=== PATIENT | female | born 1935 | race Caucasian/White ===

== ENCOUNTER 2021-03-21 12:38 | Inpatient (IN) ==
[2021-03-21] MEDS ORDERED: *HR* Dextrose 50 % in Water (Vial) 50 ML VIAL IVP PRN (16:04)
[2021-03-21] MEDS ORDERED: Dextrose Gel 15 GM/37.5 ML TUBE PO PRN ×2 (16:04)
[2021-03-21] MEDS ORDERED: D5% in Water 1,000 ML IVC PRN (16:04)
[2021-03-21] MEDS: *HR* OxyCODONE/APAP 7.5/325 TABLET PO PRN ×2 (16:32→23:02)
[2021-03-21] MEDS: Insulin LISPRO 300 UNITS/3 ML VIAL SUBQ SCH ×2 (16:33→21:15)
[2021-03-22] MEDS ORDERED: *HR* OxyCODONE Immed Rel 5 MG TABLET PO ONE (03:12)
[2021-03-22 05:07] LABS: Basophils % 0.2 %; Eosinophils # 0.1 K/mcL (0.0-0.6); Eosinophils % 1.4 %; Hematocrit 29.1 % (35.3-44.9); Hemoglobin 9.4 g/dL (11.5-15.4); Lymphocytes # 0.6 K/mcL (0.6-4.6); Lymphocytes % 11.7 %; Mean Corpuscular HGB Conc 32.3 g/dL (31.6-35.5); Mean Corpuscular Hemoglobin 28.9 pg (28.0-33.3); Mean Corpuscular Volume 89.5 fL (83.0-100.0); Mean Platelet Volume 9.6 fL (9.4-12.4); Monocytes # 0.6 K/mcL (0.0-1.3); Monocytes % 12.5 %; Neutrophils # 3.7 K/mcL (1.6-8.9); Platelet Count 412 K/mcL (140-400); Red Blood Count 3.25 M/mcL (3.82-4.97); Red Cell Distribution Width 12.9 % (11.5-14.5); Segmented Neutrophils % 73.2 %
[2021-03-22 05:22] LABS: Calcium 9.8 mg/dL (8.6-10.3)
[2021-03-22] MEDS: *HR* OxyCODONE/APAP 7.5/325 TABLET PO PRN ×3 (06:51→19:40)
[2021-03-22] MEDS: Insulin LISPRO 300 UNITS/3 ML VIAL SUBQ SCH ×4 (07:47→22:45)
[2021-03-22] MEDS: GlipiZIDE 5 MG TABLET PO SCH (08:54)
[2021-03-22] MEDS: Cholecalciferol (D-3) 1,000 UNIT (25MCG) TABLET PO SCH (08:55)
[2021-03-22] MEDS: Ondansetron ODT 4 MG TAB.RAPDIS SL PRN (12:21)
[2021-03-23] MEDS: *HR* OxyCODONE/APAP 7.5/325 TABLET PO PRN ×4 (01:47→21:14)
[2021-03-23] MEDS: Insulin LISPRO 300 UNITS/3 ML VIAL SUBQ SCH ×4 (07:48→21:16)
[2021-03-23] MEDS: GlipiZIDE 5 MG TABLET PO SCH (07:50)
[2021-03-23] MEDS: Cholecalciferol (D-3) 1,000 UNIT (25MCG) TABLET PO SCH (07:51)
[2021-03-23] MEDS: Ondansetron ODT 4 MG TAB.RAPDIS SL PRN (07:52)
[2021-03-24] MEDS: *HR* OxyCODONE/APAP 7.5/325 TABLET PO PRN ×4 (03:00→22:16)
[2021-03-24] MEDS: Cholecalciferol (D-3) 1,000 UNIT (25MCG) TABLET PO SCH (08:09)
[2021-03-24] MEDS: GlipiZIDE 5 MG TABLET PO SCH (08:09)
[2021-03-24] MEDS: Insulin LISPRO 300 UNITS/3 ML VIAL SUBQ SCH ×4 (11:27→21:00)
[2021-03-25] MEDS: *HR* OxyCODONE/APAP 7.5/325 TABLET PO PRN ×3 (04:23→17:06)
[2021-03-25] MEDS: Cholecalciferol (D-3) 1,000 UNIT (25MCG) TABLET PO SCH (09:45)
[2021-03-25] MEDS: Insulin LISPRO 300 UNITS/3 ML VIAL SUBQ SCH ×4 (09:45→20:50)
[2021-03-25] MEDS: GlipiZIDE 5 MG TABLET PO SCH (09:45)
[2021-03-25] MEDS: Fluconazole 100 MG TABLET PO SCH (15:44)
[2021-03-25] MEDS: Ibuprofen 400 MG TABLET PO PRN ×2 (15:44→23:29)
[2021-03-26] MEDS: *HR* OxyCODONE/APAP 7.5/325 TABLET PO PRN ×3 (03:49→18:41)
[2021-03-26] MEDS: *HR* Enoxaparin 30 MG/0.3 ML SYRINGE SQ SCH (05:34)
[2021-03-26 06:06] LABS: Hematocrit 30.4 % (35.3-44.9); Hemoglobin 9.5 g/dL (11.5-15.4); Mean Corpuscular HGB Conc 31.3 g/dL (31.6-35.5); Mean Corpuscular Hemoglobin 27.9 pg (28.0-33.3); Mean Corpuscular Volume 89.4 fL (83.0-100.0); Mean Platelet Volume 9.7 fL (9.4-12.4); Platelet Count 336 K/mcL (140-400); Red Cell Distribution Width 13.2 % (11.5-14.5); White Blood Count 5.8 K/mcL (4.3-11.1)
[2021-03-26 06:24] LABS: Calcium 9.3 mg/dL (8.6-10.3); Magnesium 1.9 mg/dL (1.6-2.6); Potassium 4.2 mEq/L (3.5-5.1)
[2021-03-26] MEDS: Insulin LISPRO 300 UNITS/3 ML VIAL SUBQ SCH ×4 (08:38→20:57)
[2021-03-26] MEDS: Cholecalciferol (D-3) 1,000 UNIT (25MCG) TABLET PO SCH (09:19)
[2021-03-26] MEDS: GlipiZIDE 5 MG TABLET PO SCH (09:20)
[2021-03-26] MEDS: Fluconazole 100 MG TABLET PO SCH (09:20)
[2021-03-26] MEDS: Tolterodine LA (24 HR) 2 MG CAP.ER.24H PO SCH (09:20)
[2021-03-27] MEDS: *HR* OxyCODONE/APAP 7.5/325 TABLET PO PRN ×3 (03:56→17:12)
[2021-03-27] MEDS: *HR* Enoxaparin 30 MG/0.3 ML SYRINGE SQ SCH (06:18)
[2021-03-27] MEDS: Insulin LISPRO 300 UNITS/3 ML VIAL SUBQ SCH ×4 (07:37→21:00)
[2021-03-27] MEDS: Fluconazole 100 MG TABLET PO SCH (10:01)
[2021-03-27] MEDS: Tolterodine LA (24 HR) 2 MG CAP.ER.24H PO SCH (10:01)
[2021-03-27] MEDS: Cholecalciferol (D-3) 1,000 UNIT (25MCG) TABLET PO SCH (10:01)
[2021-03-27] MEDS: GlipiZIDE 5 MG TABLET PO SCH (10:01)
[2021-03-27] MEDS: Sennosides 8.6 MG TABLET PO SCH (21:00)
[2021-03-28] MEDS: *HR* OxyCODONE/APAP 7.5/325 TABLET PO PRN ×3 (01:39→16:51)
[2021-03-28] MEDS: *HR* Enoxaparin 30 MG/0.3 ML SYRINGE SQ SCH (04:16)
[2021-03-28] MEDS: Insulin LISPRO 300 UNITS/3 ML VIAL SUBQ SCH ×4 (07:35→22:09)
[2021-03-28] MEDS: Tolterodine LA (24 HR) 2 MG CAP.ER.24H PO SCH (09:00)
[2021-03-28] MEDS: Cholecalciferol (D-3) 1,000 UNIT (25MCG) TABLET PO SCH (09:00)
[2021-03-28] MEDS: GlipiZIDE 5 MG TABLET PO SCH (09:00)
[2021-03-28] MEDS: Sennosides 8.6 MG TABLET PO SCH ×2 (09:00→22:08)
[2021-03-28] MEDS: Fluconazole 100 MG TABLET PO SCH (09:00)
[2021-03-28] MEDS: polyethylene glycoL 3350 17 GM POWD.PACK PO SCH (09:01)
[2021-03-29] MEDS: *HR* OxyCODONE/APAP 7.5/325 TABLET PO PRN ×3 (02:57→21:38)
[2021-03-29] MEDS: *HR* Enoxaparin 30 MG/0.3 ML SYRINGE SQ SCH (06:23)
[2021-03-29] MEDS: Insulin LISPRO 300 UNITS/3 ML VIAL SUBQ SCH ×4 (07:49→21:33)
[2021-03-29] MEDS: Cholecalciferol (D-3) 1,000 UNIT (25MCG) TABLET PO SCH (09:35)
[2021-03-29] MEDS: polyethylene glycoL 3350 17 GM POWD.PACK PO SCH (09:35)
[2021-03-29] MEDS: Tolterodine LA (24 HR) 2 MG CAP.ER.24H PO SCH (09:36)
[2021-03-29] MEDS: Fluconazole 100 MG TABLET PO SCH (09:36)
[2021-03-29] MEDS: Sennosides 8.6 MG TABLET PO SCH ×2 (09:36→21:38)
[2021-03-29] MEDS: GlipiZIDE 5 MG TABLET PO SCH (09:36)
[2021-03-30] MEDS: *HR* OxyCODONE/APAP 7.5/325 TABLET PO PRN ×4 (03:11→23:03)
[2021-03-30] MEDS: *HR* Enoxaparin 30 MG/0.3 ML SYRINGE SQ SCH (05:58)
[2021-03-30] MEDS: Insulin LISPRO 300 UNITS/3 ML VIAL SUBQ SCH ×4 (08:23→20:06)
[2021-03-30] MEDS: polyethylene glycoL 3350 17 GM POWD.PACK PO SCH (08:54)
[2021-03-30] MEDS: Fluconazole 100 MG TABLET PO SCH (08:55)
[2021-03-30] MEDS: Sennosides 8.6 MG TABLET PO SCH ×2 (08:55→20:07)
[2021-03-30] MEDS: GlipiZIDE 5 MG TABLET PO SCH (08:55)
[2021-03-30] MEDS: Tolterodine LA (24 HR) 2 MG CAP.ER.24H PO SCH (08:55)
[2021-03-30] MEDS: Cholecalciferol (D-3) 1,000 UNIT (25MCG) TABLET PO SCH (08:56)
[2021-03-31 06:15] LABS: Basophils % 0.2 %; Eosinophils # 0.2 K/mcL (0.0-0.6); Eosinophils % 3.7 %; Hematocrit 30.1 % (35.3-44.9); Hemoglobin 9.3 g/dL (11.5-15.4); Immature Granulocytes % 0.5 % (0-4); Lymphocytes # 0.6 K/mcL (0.6-4.6); Lymphocytes % 14.3 %; Mean Corpuscular HGB Conc 30.9 g/dL (31.6-35.5); Mean Corpuscular Hemoglobin 27.8 pg (28.0-33.3); Mean Corpuscular Volume 89.9 fL (83.0-100.0); Monocytes # 0.4 K/mcL (0.0-1.3); Monocytes % 10.1 %; Neutrophils # 2.9 K/mcL (1.6-8.9); Platelet Count 256 K/mcL (140-400); Red Blood Count 3.35 M/mcL (3.82-4.97); Red Cell Distribution Width 13.7 % (11.5-14.5); Segmented Neutrophils % 71.2 %; White Blood Count 4.1 K/mcL (4.3-11.1)
[2021-03-31] MEDS: *HR* Enoxaparin 30 MG/0.3 ML SYRINGE SQ SCH (06:19)
[2021-03-31] MEDS: *HR* OxyCODONE/APAP 7.5/325 TABLET PO PRN ×2 (06:23→19:51)
[2021-03-31 06:34] LABS: Calcium 9.2 mg/dL (8.6-10.3); Potassium 4.4 mEq/L (3.5-5.1)
[2021-03-31] MEDS: Insulin LISPRO 300 UNITS/3 ML VIAL SUBQ SCH ×4 (07:55→19:48)
[2021-03-31] MEDS: Tolterodine LA (24 HR) 2 MG CAP.ER.24H PO SCH (08:41)
[2021-03-31] MEDS: polyethylene glycoL 3350 17 GM POWD.PACK PO SCH (08:41)
[2021-03-31] MEDS: Sennosides 8.6 MG TABLET PO SCH ×2 (08:41→19:51)
[2021-03-31] MEDS: Fluconazole 100 MG TABLET PO SCH (08:41)
[2021-03-31] MEDS: Cholecalciferol (D-3) 1,000 UNIT (25MCG) TABLET PO SCH (08:41)
[2021-03-31] MEDS: GlipiZIDE 5 MG TABLET PO SCH (08:41)
[2021-04-01] MEDS: *HR* Enoxaparin 30 MG/0.3 ML SYRINGE SQ SCH (04:51)
[2021-04-01] MEDS: Cholecalciferol (D-3) 1,000 UNIT (25MCG) TABLET PO SCH (08:55)
[2021-04-01] MEDS: GlipiZIDE 5 MG TABLET PO SCH (08:55)
[2021-04-01] MEDS: Fluconazole 100 MG TABLET PO SCH (08:55)
[2021-04-01] MEDS: Sennosides 8.6 MG TABLET PO SCH ×2 (08:55→23:16)
[2021-04-01] MEDS: polyethylene glycoL 3350 17 GM POWD.PACK PO SCH (08:56)
[2021-04-01] MEDS: Tolterodine LA (24 HR) 2 MG CAP.ER.24H PO SCH (08:56)
[2021-04-01] MEDS: Insulin LISPRO 300 UNITS/3 ML VIAL SUBQ SCH ×4 (09:33→23:16)
[2021-04-01] MEDS: *HR* OxyCODONE/APAP 7.5/325 TABLET PO PRN ×3 (10:19→23:16)
[2021-04-02] MEDS: *HR* Enoxaparin 30 MG/0.3 ML SYRINGE SQ SCH (06:43)
[2021-04-02] MEDS: *HR* OxyCODONE/APAP 7.5/325 TABLET PO PRN ×3 (06:43→21:19)
[2021-04-02] MEDS: Cholecalciferol (D-3) 1,000 UNIT (25MCG) TABLET PO SCH (07:53)
[2021-04-02] MEDS: Insulin LISPRO 300 UNITS/3 ML VIAL SUBQ SCH ×4 (07:53→21:27)
[2021-04-02] MEDS: GlipiZIDE 5 MG TABLET PO SCH (07:54)
[2021-04-02] MEDS: Fluconazole 100 MG TABLET PO SCH (07:54)
[2021-04-02] MEDS: polyethylene glycoL 3350 17 GM POWD.PACK PO SCH (07:54)
[2021-04-02] MEDS: Tolterodine LA (24 HR) 2 MG CAP.ER.24H PO SCH (07:54)
[2021-04-02] MEDS: Sennosides 8.6 MG TABLET PO SCH ×2 (07:55→21:08)
[2021-04-03] MEDS: *HR* Enoxaparin 30 MG/0.3 ML SYRINGE SQ SCH (04:06)
[2021-04-03] MEDS: *HR* OxyCODONE/APAP 7.5/325 TABLET PO PRN ×3 (04:06→18:28)
[2021-04-03] MEDS: Insulin LISPRO 300 UNITS/3 ML VIAL SUBQ SCH ×4 (10:01→20:56)
[2021-04-03] MEDS: GlipiZIDE 5 MG TABLET PO SCH (10:02)
[2021-04-03] MEDS: Fluconazole 100 MG TABLET PO SCH (10:02)
[2021-04-03] MEDS: Tolterodine LA (24 HR) 2 MG CAP.ER.24H PO SCH (10:02)
[2021-04-03] MEDS: Cholecalciferol (D-3) 1,000 UNIT (25MCG) TABLET PO SCH (10:02)
[2021-04-03] MEDS: Sennosides 8.6 MG TABLET PO SCH ×2 (10:02→20:57)
[2021-04-03] MEDS: polyethylene glycoL 3350 17 GM POWD.PACK PO SCH (10:03)
[2021-04-04] MEDS: *HR* OxyCODONE/APAP 7.5/325 TABLET PO PRN ×4 (00:34→18:40)
[2021-04-04] MEDS: *HR* Enoxaparin 30 MG/0.3 ML SYRINGE SQ SCH (05:04)
[2021-04-04] MEDS: Insulin LISPRO 300 UNITS/3 ML VIAL SUBQ SCH ×4 (09:46→21:34)
[2021-04-04] MEDS: GlipiZIDE 5 MG TABLET PO SCH (09:55)
[2021-04-04] MEDS: Sennosides 8.6 MG TABLET PO SCH ×2 (09:55→21:34)
[2021-04-04] MEDS: Cholecalciferol (D-3) 1,000 UNIT (25MCG) TABLET PO SCH (09:55)
[2021-04-04] MEDS: Fluconazole 100 MG TABLET PO SCH (09:55)
[2021-04-04] MEDS: polyethylene glycoL 3350 17 GM POWD.PACK PO SCH (09:56)
[2021-04-04] MEDS: Tolterodine LA (24 HR) 2 MG CAP.ER.24H PO SCH (09:56)
[2021-04-04] MEDS: *HR* Metformin 500 MG TABLET PO SCH (18:40)
[2021-04-05] MEDS: *HR* OxyCODONE/APAP 7.5/325 TABLET PO PRN ×2 (00:50→08:30)
[2021-04-05] MEDS: *HR* Enoxaparin 30 MG/0.3 ML SYRINGE SQ SCH (05:10)
[2021-04-05 07:49] VITALS: BP 151/72; PULSE 73; RESP 17; TEMP 97.5; O2SAT 97
[2021-04-05] MEDS: Insulin LISPRO 300 UNITS/3 ML VIAL SUBQ SCH (08:28)
[2021-04-05] MEDS: Fluconazole 100 MG TABLET PO SCH (08:28)
[2021-04-05] MEDS: Cholecalciferol (D-3) 1,000 UNIT (25MCG) TABLET PO SCH (08:28)
[2021-04-05] MEDS: Tolterodine LA (24 HR) 2 MG CAP.ER.24H PO SCH (08:28)
[2021-04-05] MEDS: *HR* Metformin 500 MG TABLET PO SCH (08:28)
[2021-04-05] MEDS: GlipiZIDE 5 MG TABLET PO SCH (08:29)
[2021-04-05] MEDS: Sennosides 8.6 MG TABLET PO SCH (08:30)
[2021-04-05] MEDS: polyethylene glycoL 3350 17 GM POWD.PACK PO SCH (08:30)
== END 2021-04-05 12:20 | disposition home health service (06) | DRG 637 ==
LOC: INPGRE 15:06
PROVIDERS: ADMIT Family Medicine; ATTEND Family Medicine